=== PATIENT | male | born 1970 | race Caucasian/White ===

== ENCOUNTER → 2017-02-10 | Outpatient (CLI) | payer BC | LOC: FIMAGING 15:41 | PROVIDERS: ATTEND Orthopaedic Surgery | DX: M25.561 Pain in right knee (principal); M21.752 Unequal limb length (acquired), left femur ==

== ENCOUNTER → 2017-03-21 | Outpatient (CLI) | payer BC | LOC: FIMAGING 16:23 | PROVIDERS: ATTEND Orthopaedic Surgery | DX: Z01.818 Encounter for other preprocedural examination (principal); M17.11 Unilateral primary osteoarthritis, right knee ==

== ENCOUNTER 2017-03-31 07:24 | Observation (INO) | payer BC ==
[2017-03-21 17:27] LABS: % IMMATURE GRANULYOCYTES 0.3 % (0.0-1.1); ABSOLUTE IMMATURE GRANULOCYTES 0.02 10^3/uL (0.00-0.10); ADD DIFF? NO; ADD MORPH? NO; ADD SCAN? NO; ATYPICAL LYMPHOCYTE FLAG 0 (0-99); FRAGMENT RBC FLAG 0 (0-99); HEMATOCRIT 43.4 % (40.0-51.0); LEFT SHIFT FLG 0 (0-99); LIPEMIA HEMOLYSIS FLAG 90 (0-99); MEAN CELL HEMOGLOBIN 31.9 pg (27.9-34.1); MEAN CELL HEMOGLOBIN CONCENTR. 34.6 g/dL (32.4-36.7); MEAN CELL VOLUME 92.3 fL (81.5-99.8); PLATELET CLUMPS FLAG 0 (0-99); PLATELET COUNT 170 10^3/uL (150-400); RED CELL DISTRIBUTION WIDTH 12.6 % (11.5-15.2)
[~2017-03-31 07:24] MED LIST: ACETAMINOPHEN 325 MG TAB PO ONE; DEXAMETHASONE 4 MG/ML VIAL IVP ONE; FAMOTIDINE 20 MG TAB PO ONE; ROPIVACAINE 0.2% 80 MG, EPINEPHrine 0.2 MG, KETOROLAC TROMETHAMINE 30 MG in BAG 0 ML IU ONE; TRANEXAMIC ACID 3,000 MG in NS 50 ML IRR ONE; ceFAZolin 2 GM/DEXTROSE 100 ML IV ONE
[2017-03-31] MEDS ORDERED: LR 1,000 ML IV ONE (07:35)
[2017-03-31] MEDS ORDERED: LIDOCAINE 1% 2 ML INJ ID PRN (07:35)
--- NOTE | 2017-03-31 08:16 | PDHPUP ---
History & Physical Update H&P update statement: This history and physical update is based on an assessment of the patient which was completed after admission or registration (within 24 hours), but prior to the surgery/procedure. H&P update: H&P reviewed & patient examined, no change in patient's condition since H&P completed
[2017-03-31] MEDS ORDERED: MIDAZOLAM 2 MG/2 ML VIAL ONE (08:58)
[2017-03-31] MEDS ORDERED: MIDAZOLAM 2 MG/2 ML VIAL IVP ONE (09:00)
--- NOTE | 2017-03-31 09:02 | PDANEPAE ---
ANE Past Medical History - Cardiovascular History Hx Hypertension: No Hx Arrhythmias: No Hx Chest Pain: No Hx Coronary Artery / Peripheral Vascular Disease: No Hx CHF / Valvular Disease: No Hx Palpitations: No - Pulmonary History Hx COPD: No Hx Asthma/Reactive Airway Disease: No Hx Recent Upper Respiratory Infection: No Hx Oxygen in Use at Home: No Hx Sleep Apnea: No Sleep Apnea Screening Result - Last Documented: Negative - Neurologic History Hx Cerebrovascular Accident: No Hx Seizures: No Hx Dementia: No - Endocrine History Hx Diabetes: No Hypothyroid: No Hyperthyroid: No Obesity: no - Renal History Hx Renal Disorders: No - Liver History Hx Hepatic Disorders: No - Neurological & Psychiatric Hx Hx Neurological and Psychiatric Disorders: No - Cancer History Hx Cancer: No - Congenital Disorder History Hx Congenital Disorders: No - GI History Hx Gastrointestinal Disorders: No - Other Health History Other Health History: none,. bruises easily - Surgical History Prior Surgeries: lasik, left tendon repair, L5/S1, Rib fx x2, 2 punctured lungs ANE Review of Systems Review of Systems: - Exercise capacity METS (RN): 5 METS ANE Patient History - Allergies Allergies/Adverse Reactions: No Known Allergies Allergy (Verified 03/12/14 16:41) - Home Medications Home Medications: Meloxicam 15 mg PO DAILY PRN 03/12/14 [Last Taken 03/24/17] Benzonatate 200 mg PO DAILY PRN 03/02/17 [Last Taken Unknown] Glucosamine Sulfate [Glucosamine Sulfate 500 MG (*)] 500 mg PO DAILY 03/02/17 [ Last Taken 03/26/17] Herbals/Supplements -Info Only 1 ea PO DAILY 03/02/17 [Last Taken 03/26/17] Melatonin [Melatonin 3 MG (*)] 3 mg PO HS PRN 03/02/17 [Last Taken 03/26/17] Multivitamins [Multivitamin (*)] 1 each PO DAILY 03/02/17 [Last Taken 03/26/17] [place]-3 Fatty Acids [Fish Oil 1000 mg (*)] 1,000 mg PO DAILY 03/02/17 [Last Taken 03/26/17] Zolpidem Tartrate [Ambien 5MG (*)] 5 mg PO HS PRN 03/02/17 [Last Taken 03/31/17] valACYclovir [Valtrex (*)] 500 mg PO PRN PRN 03/02/17 [Last Taken 01/30/17] - NPO status NPO Since - Liquids (Date): 03/30/17 NPO Since - Liquids (Time): 22:30 NPO Since - Solids (Date): 03/30/17 NPO Since - Solids (Time): 22:30 - Smoking Hx Smoking Status: Never smoked - Family Anes Hx Family Hx Anesthesia Complications: none ANE Labs/Vital Signs - Labs Result Diagrams: 03/21/17 17:00 - Vital Signs Blood Pressure: 141/80 Heart Rate: 64 Respiratory Rate: 16 O2 Sat (%): 94 Height: 182.88 cm Weight: 86.183 kg ANE Physical Exam - Airway Neck exam: FROM Mallampati Score: Class 1 Mouth exam: normal dental/mouth exam - Pulmonary Pulmonary: no respiratory distress, no rales or rhonchi, clear to auscultation - Cardiovascular Cardiovascular: regular rate and rhythym, no murmur, rub, or gallop ANE Anesthesia Plan Anesthesia Plan: MAC, spinal Regional Anesthesia: adductor canal FNB (nerve block to be done inpacu)
[2017-03-31] MEDS ORDERED: PROPOFOL/EMULSION 500 MG/50 ML BOTTLE IV ONE ×2 (09:04→10:06)
[2017-03-31] MEDS ORDERED: fentaNYL 100 MCG/2 ML INJ ONE (09:04)
[2017-03-31] MEDS ORDERED: LIDOCAINE 2% 5 ML SDV ONE ×2 (09:06)
[2017-03-31] MEDS ORDERED: LR 500 ML IV PRN (09:27)
[2017-03-31] MEDS ORDERED: NALOXONE HCL 0.4 MG/ML INJ IVP PRN (09:27)
[2017-03-31] MEDS ORDERED: ONDANSETRON 4 MG/2 ML VIAL IVP PRN ×2 (09:27→09:42)
[2017-03-31] MEDS ORDERED: PROMETHAZINE HCL 25 MG/ML INJ IVP PRN (09:42)
[2017-03-31] MEDS ORDERED: LACTULOSE 20 GM/30 ML UDCUP PO PRN (09:42)
[2017-03-31] MEDS ORDERED: PROMETHAZINE HCL 25 MG SUPPR PR PRN (09:42)
[2017-03-31] MEDS ORDERED: BISACODYL 10 MG SUPP PR PRN (09:42)
[2017-03-31] MEDS ORDERED: CYCLOBENZAPRINE 10 MG TAB PO PRN (09:42)
[2017-03-31] MEDS ORDERED: TEMAZEPAM 15 MG CAP PO PRN (09:42)
[2017-03-31] MEDS ORDERED: MAGNESIUM HYDROXIDE 30 ML UDCUP PO PRN (09:42)
[2017-03-31] MEDS ORDERED: diphenhydrAMINE 25 MG CAP PO PRN (09:42)
[2017-03-31] MEDS ORDERED: POLYETHYLENE GLYCOL 3350 17 GM PKT PO PRN (09:42)
[2017-03-31] MEDS ORDERED: METOCLOPRAMIDE 10 MG/2 ML VIAL IVP PRN (09:42)
[2017-03-31] MEDS ORDERED: ONDANSETRON DISINTEGRATING 4 MG TAB PO PRN (09:42)
[2017-03-31] MEDS ORDERED: DIPHENOXYLATE/ATROPINE LOMOTIL 1 TAB PO PRN (09:42)
[2017-03-31] MEDS ORDERED: ZOLPIDEM TARTRATE 5 MG TAB PO PRN (09:44)
[2017-03-31] MEDS ORDERED: LR 1,000 ML IV SCH (10:00)
[2017-03-31] MEDS ORDERED: ROPIVACAINE HCL 150 MG/30 ML INJ ONE (10:08)
--- NOTE | 2017-03-31 10:37 | POSTOPPROG ---
Post Op Note Date of Operation: 03/31/17 Surgeon: Berenice Hawley Platform Beater: júnior hawley Anesthesiologist: dr. hawley Anesthesia: Spinal, Other (Specify) (adductor canal block) Pre-op Diagnosis: right knee OA Post-op Diagnosis: same Indication: right knee pain due to OA that failed conservative measures Procedure: R TKA Findings: right knee OA Inf/Abcess present in the surg proc area at time of surgery?: No EBL: 50-100
[2017-03-31] MEDS ORDERED: ONDANSETRON 4 MG/2 ML VIAL ONE (10:54)
--- NOTE | 2017-03-31 11:28 | POSTANESTH ---
Post Anesthetic Evaluation Cardiovascular Status: Normal, Stable Respiratory Status: Normal, Stable Level of Consciousness/Mental Status: Can Participate in Eval Pain Control: Adequate, Prn Tx Ordered Nausea/Vomiting Control: Adequate, Prn Tx Ordered Complications Possibly Related to Anesthesia: None Noted
[2017-03-31] MEDS: ACETAMINOPHEN 325 MG TAB PO SCH ×2 (14:00→20:56)
[2017-03-31] MEDS: oxyCODONE IR 5 MG TAB PO PRN (17:42)
[2017-03-31] MEDS: ceFAZolin 2 GM/DEXTROSE 100 ML IV SCH (17:43)
[2017-03-31] MEDS: ASPIRIN 325 MG TAB PO SCH (20:25)
[2017-03-31] MEDS: FAMOTIDINE 20 MG TAB PO SCH (20:26)
[2017-03-31] MEDS: SENNOSIDES/DOCUSATE SODIUM TAB PO SCH (20:27)
[2017-04-01] MEDS: ACETAMINOPHEN 325 MG TAB PO SCH ×3 (00:27→11:53)
[2017-04-01] MEDS: ceFAZolin 2 GM/DEXTROSE 100 ML IV SCH (00:30)
[2017-04-01 05:19] LABS: HEMATOCRIT 37.9 % (40.0-51.0); HEMOGLOBIN 12.9 g/dL (13.7-17.5)
[2017-04-01 08:06] VITALS: BP 121/83; PULSE 65; RESP 14; TEMP 98.1; O2SAT 94
[2017-04-01] MEDS: oxyCODONE IR 5 MG TAB PO PRN (08:17)
[2017-04-01] MEDS: FAMOTIDINE 20 MG TAB PO SCH (09:45)
[2017-04-01] MEDS: ASPIRIN 325 MG TAB PO SCH (09:46)
[2017-04-01] MEDS: SENNOSIDES/DOCUSATE SODIUM TAB PO SCH (09:46)
[2017-04-01] MEDS ORDERED: FLU VACC QS 2017-18 (3YR+)/PF 0.5 ML SYR (FLUARIX QUAD) IM ONE (10:31)
--- NOTE | 2017-04-01 11:13 | SOAPPROG ---
SOAP Progress Note Assessment/Plan: Assessment: Dank is POD 1 s/p R medial MPL 1) pain management: pain is well controlled on oral pain meds. adductor canal block is still working, but starting to wear off 2) Anemia: level expected initially postop. asymptomatic. continue to monitor 3) VTE ppx: aspirin 325 mg daily for 3 weeks 4) D/c planning: d/c to home today. 5) draining incision: improved today. replaced dressing. recommend restricting flexion to 90 degrees, f/u with Dr. Vang on Monday. Plan: 04/01/17 11:10 Subjective: Dank is doing well, denies SOB, chest pain and N/V. Objective: Vital Signs Temp Pulse Resp BP Pulse Ox 36.7 C 65 14 121/83 H 94 04/01/17 08:00 04/01/17 08:00 04/01/17 08:00 04/01/17 08:00 04/01/17 08:00 Laboratory Results 04/01/17 04:20 03/31/17 04/01/17 04/02/17 05:59 05:59 05:59 Intake Total 3765 Output Total 880 Balance 2885 RLE; incision dressing has dried blood on it, +pf/df, NVI ICD10 Worksheet Patient Problems: Problems Problem Status Onset Primary localized osteoarthritis of right knee Acute
--- NOTE | 2017-04-01 11:46 | ASMTCMCOM ---
CM Note CM Note Notes: Pt ready for DC today with no needs. Date Signed: 04/01/2017 11:45 AM Electronically Signed By:Meaghan Giles LCSW
--- NOTE | 2017-04-01 13:26 | GDS ---
[f rep st] DISCHARGE SUMMARY ADMISSION DIAGNOSIS: Right knee osteoarthritis. DISCHARGE DIAGNOSIS: Right knee osteoarthritis. PROCEDURE: Right partial knee arthroplasty, medial compartment, robot assisted. VTE PROPHYLAXIS: Aspirin recommended 3 weeks daily. BRIEF DESCRIPTION OF HOSPITAL STAY: Patient was admitted for an elective joint arthroplasty. The pa dahiana tolerated the procedure well and has passed physical therapy. The patient was given appropriat e antibiotic prophylaxis and venous thromboembolism prophylaxis. The patient's pain was well control led on oral pain medication, patient was holding down food, and had urinated. Decision was made to d ischarge the patient. The patient was given post-operative prescriptions pre-operatively. PLAN: Please follow up as scheduled on 04/20 at 4 p.m. /[id number]/MODL
--- NOTE | 2017-04-02 20:46 | GOP ---
[f rep st] OPERATIVE REPORT DATE OF OPERATION: 03/31/2017 SURGEON: Mariah Vang MD CAN CLOSING MACHINE TENDER: JACLYN Benitez. ANESTHESIA: Spinal. PREOPERATIVE DIAGNOSIS: Right knee osteoarthritis. POSTOPERATIVE DIAGNOSIS: Right knee osteoarthritis. PROCEDURE PERFORMED: Right medial compartment partial knee replacement with computer navigation and robotic assist. FINDINGS/PATHOLOGY: Severe medial compartment osteoarthritis. ESTIMATED BLOOD LOSS: 30 cc. INDICATIONS: This is a 46-year-old male with progressive pain of the right knee unresponsive to conservative care. Risks and benefits of surgical intervention were explained in detail. DESCRIPTION OF PROCEDURE: The patient was brought to the operating room and placed on the table in supine position. Spinal anesthesia was induced without difficulty. A pneumatic tourniquet was applied about the right proximal thigh and the leg was prepped and draped in sterile fashion. Attention was turned first to the distal aspect of the right femur. At 3 cm proximal to the lateral rise of the femur, 2 percutaneous half pins were placed for fixation of the femoral array. In a similar fashion, 2 pins were placed anterolateral on the tibia for fixation of the tibial array. External land marking and registration of the hip center was performed without difficulty. After exsanguination by elevation, the tourniquet was inflated to 250 mmHg. Incision was made from the tibial tuberosity to the superior pole of the patella. Dissection was carried out through the subcutaneous tissue to the deep fascia using Bovie electrocautery for hemostasis. Medial parapatellar arthrotomy was carried out to the superior pole of the patella. The medial collateral ligament was elevated and the infrapatellar fat pad was resected. Internal femoral and tibial registration was carried out without difficulty and the femoral and tibial checkpoints were placed and verified for accuracy. Attention was turned to the femur. The foot print for the size 6 femoral component was cut with the 6 mm bur using the [employer] robotic system and verified for accuracy against the CT based plan. The hole was cut for the femoral post. In a similar fashion, the 6 mm bur was used to cut the foot print for the size 6 tibial component using the Qnekt system and verified for accuracy against the CT based plan. Attention was turned to the posterior aspect of the knee and remnants of the medial meniscus were excised. The posterior capsule was injected with ropivacaine, epinephrine and Toradol. Trial reduction was carried out and there was excellent range of motion, alignment and stability using the size 6 femoral component and the size 6 tibial component, 6 x 9 mm polyethylene. All trials were then removed. The joint was thoroughly irrigated and carefully dried. One package of cement and 1 gram of vancomycin were mixed in the vacuum mixer and placed on the fixation surfaces of all components. The components were implanted and all excess cement was thoroughly removed. Implant placement was verified against the CT view plan and found to be excellent. The tourniquet was deflated and all bleeders were coagulated. The wound was thoroughly irrigated and closed using interrupted sutures of 2-0 Vicryl for the joint capsule. The subcu was closed with 3-0 Vicryl and the skin with 4-0 Monocryl. Dermabond and Steri-Strips were applied, followed by a compressive dressing. The patient was then moved from the operating room to the recovery room in good condition, having tolerated the procedure well. CASE CLASSIFICATION: Clean. /[id number]/MODL MTDD
== END 2017-04-01 12:34 | disposition home or self-care (01) ==
LOC: INTOOBSV 07:24 → F3N 07:24
PROVIDERS: ADMIT Orthopaedic Surgery; ATTEND Orthopaedic Surgery
PROC: 0SR Lower Joints, Replacement (ICD-10-PCS; principal; 2017-03-31 09:15)
DX: M17.11 Unilateral primary osteoarthritis, right knee (principal)
CPT/HCPCS: 27446; 73560; 90471; 97116; 97161; 97165; G0378; C1713; G0008; J0171; J0690; J1100; J1885; J2250; J2405; J2704; J2795; J3010

== ENCOUNTER → 2017-05-19 | Outpatient (CLI) | payer BC | LOC: FIMAGING 14:23 | PROVIDERS: ATTEND Orthopaedic Surgery | DX: Z01.818 Encounter for other preprocedural examination (principal); M17.12 Unilateral primary osteoarthritis, left knee; M16.12 Unilateral primary osteoarthritis, left hip; M19.072 Primary osteoarthritis, left ankle and foot ==

== ENCOUNTER 2017-06-02 07:12 | Observation (INO) | payer BC ==
[~2017-06-02 07:12] MED LIST changes: -ACETAMINOPHEN 325 MG TAB PO ONE; -DEXAMETHASONE 4 MG/ML VIAL IVP ONE; -FAMOTIDINE 20 MG TAB PO ONE; -ROPIVACAINE 0.2% 80 MG, EPINEPHrine 0.2 MG, KETOROLAC TROMETHAMINE 30 MG in BAG 0 ML IU ONE; +ROPIVACAINE 0.2% 80 MG, EPINEPHrine 0.2 MG, KETOROLAC TROMETHAMINE 30 MG in SYRINGE 0 ML IU ONE; -ceFAZolin 2 GM/DEXTROSE 100 ML IV ONE
[2017-06-02] MEDS ORDERED: DEXAMETHASONE 4 MG/ML VIAL IVP ONE (07:45)
[2017-06-02] MEDS ORDERED: ceFAZolin 2 GM/SWFI 2 GM/20 ML SYR IVP ONE (07:45)
[2017-06-02] MEDS ORDERED: FAMOTIDINE 20 MG TAB PO ONE (07:45)
[2017-06-02] MEDS ORDERED: ACETAMINOPHEN 325 MG TAB PO ONE (07:45)
[2017-06-02] MEDS ORDERED: LR 1,000 ML IV ONE (07:46)
[2017-06-02] MEDS ORDERED: TRANEXAMIC ACID 3,000 MG/50 ML BAG IRR ONE (07:56)
[2017-06-02] MEDS ORDERED: VANCOMYCIN 1 GM VIAL ONE (07:56)
[2017-06-02] MEDS ORDERED: MIDAZOLAM 2 MG/2 ML VIAL ONE (09:00)
[2017-06-02] MEDS ORDERED: BUPIVACAINE 0.5% 30 ML SDV ONE (09:04)
[2017-06-02] MEDS ORDERED: PROPOFOL/EMULSION 500 MG/50 ML BOTTLE IV ONE (09:05)
[2017-06-02] MEDS ORDERED: LIDOCAINE 2% 5 ML SDV ONE (09:07)
--- NOTE | 2017-06-02 09:37 | PDANEPAE ---
ANE History of Present Illness left knee OA ANE Past Medical History - Cardiovascular History Hx Hypertension: No Hx Arrhythmias: No Hx Chest Pain: No Hx Coronary Artery / Peripheral Vascular Disease: No Hx CHF / Valvular Disease: No Hx Palpitations: No - Pulmonary History Hx COPD: No Hx Asthma/Reactive Airway Disease: No Hx Recent Upper Respiratory Infection: No Hx Oxygen in Use at Home: No Hx Sleep Apnea: No Sleep Apnea Screening Result - Last Documented: Negative - Neurologic History Hx Cerebrovascular Accident: No Hx Seizures: No Hx Dementia: No - Endocrine History Hx Diabetes: No Obesity: no - Renal History Hx Renal Disorders: No - Liver History Hx Hepatic Disorders: No - Neurological & Psychiatric Hx Hx Neurological and Psychiatric Disorders: No - Cancer History Hx Cancer: No - Congenital Disorder History Hx Congenital Disorders: No - GI History Hx Gastrointestinal Disorders: No - Other Health History Other Health History: bruises easily - Chronic Pain History Chronic Pain: Yes (LT KNEE) - Surgical History Prior Surgeries: RT PARTIAL TOTAL KNEE 03/2017. lasik,. left tendon repair,. L5/S1, Rib fx x2, 2 punctured lungs ANE Review of Systems Review of Systems: - Exercise capacity METS (RN): 4 METS ANE Patient History - Allergies Allergies/Adverse Reactions: No Known Allergies Allergy (Verified 03/12/14 16:41) - Home Medications Home medications: home medication list seen and reviewed Home Medications: Melatonin [Melatonin 3 MG (*)] 3 mg PO HS PRN 03/02/17 [Last Taken 05/30/17] Zolpidem Tartrate [Ambien 5MG (*)] 10 mg PO HS PRN 03/02/17 [Last Taken 03/31/17 ] valACYclovir [Valtrex (*)] 500 mg PO PRN PRN 03/02/17 [Last Taken 01/30/17] - NPO status NPO Since - Liquids (Date): 06/02/17 NPO Since - Solids (Date): 06/01/17 - Smoking Hx Smoking Status: Never smoked - Family Anes Hx Family Hx Anesthesia Complications: none ANE Labs/Vital Signs - Vital Signs Blood Pressure: 138/89 Heart Rate: 64 Respiratory Rate: 16 O2 Sat (%): 96 Height: 182.88 cm Weight: 86.183 kg ANE Physical Exam - Airway Neck exam: FROM Mallampati Score: Class 1 Mouth exam: normal dental/mouth exam - Pulmonary Pulmonary: no respiratory distress - Cardiovascular Cardiovascular: regular rate and rhythym - ASA Status ASA Status: I ANE Anesthesia Plan Anesthesia Plan: spinal Regional Anesthesia: single shot NB, adductor canal FNB Urgent/Emergent Case: Anes eval completed preop but documented later for safe timely pt care
[2017-06-02] MEDS ORDERED: PROPOFOL 200 MG/20 ML VIAL ONE ×2 (09:52→10:19)
[2017-06-02] MEDS ORDERED: MAGNESIUM HYDROXIDE 30 ML UDCUP PO PRN (09:54)
[2017-06-02] MEDS ORDERED: ONDANSETRON DISINTEGRATING 4 MG TAB PO PRN (09:54)
[2017-06-02] MEDS ORDERED: ONDANSETRON 4 MG/2 ML VIAL IVP PRN (09:54)
[2017-06-02] MEDS ORDERED: BISACODYL 10 MG SUPP PR PRN (09:54)
[2017-06-02] MEDS ORDERED: diphenhydrAMINE 25 MG CAP PO PRN (09:54)
[2017-06-02] MEDS ORDERED: PROMETHAZINE HCL 25 MG SUPPR PR PRN (09:54)
[2017-06-02] MEDS ORDERED: DIPHENOXYLATE/ATROPINE LOMOTIL 1 TAB PO PRN (09:54)
[2017-06-02] MEDS ORDERED: TEMAZEPAM 15 MG CAP PO PRN (09:54)
[2017-06-02] MEDS ORDERED: POLYETHYLENE GLYCOL 3350 17 GM PKT PO PRN (09:54)
[2017-06-02] MEDS ORDERED: oxyCODONE IR 5 MG TAB PO PRN (09:54)
[2017-06-02] MEDS ORDERED: CYCLOBENZAPRINE 10 MG TAB PO PRN (09:54)
[2017-06-02] MEDS ORDERED: METOCLOPRAMIDE 10 MG/2 ML VIAL IVP PRN (09:54)
[2017-06-02] MEDS ORDERED: LACTULOSE 20 GM/30 ML UDCUP PO PRN (09:54)
[2017-06-02] MEDS ORDERED: PROMETHAZINE HCL 25 MG/ML INJ IVP PRN (09:54)
[2017-06-02] MEDS ORDERED: MIDAZOLAM 2 MG/2 ML VIAL IVP ONE (09:56)
[2017-06-02] MEDS ORDERED: LR 1,000 ML IV SCH (10:00)
--- NOTE | 2017-06-02 10:34 | POSTOPPROG ---
Post Op Note Date of Operation: 06/02/17 Surgeon: Berenice Hawley Hydrogen Operator: júnior hawley Anesthesiologist: dr. sheppard Anesthesia: Spinal, Other (Specify) (adductor canal block) Pre-op Diagnosis: left knee OA Post-op Diagnosis: same Indication: left knee pain due to OA that failed conservative measures Procedure: L med MPL Findings: severe medial knee OA Inf/Abcess present in the surg proc area at time of surgery?: No EBL: 50-100
[2017-06-02 13:30] VITALS: RESP 16; TEMP 97.3; O2SAT 97
[2017-06-02] MEDS: ACETAMINOPHEN 325 MG TAB PO SCH ×2 (13:52→17:50)
[2017-06-02 15:53] VITALS: BP 133/80; PULSE 62
[2017-06-02] MEDS ORDERED: ceFAZolin 2 GM/DEXTROSE 100 ML IV SCH (17:00)
[2017-06-02] MEDS ORDERED: SENNOSIDES/DOCUSATE SODIUM TAB PO SCH (21:00)
[2017-06-02] MEDS ORDERED: ASPIRIN 325 MG TAB PO SCH (21:00)
[2017-06-02] MEDS ORDERED: FAMOTIDINE 20 MG TAB PO SCH (21:00)
[2017-06-02] MEDS ORDERED: ASPIRIN 81 MG CHEWABLE TAB PO SCH (21:00)
--- NOTE | 2017-06-03 10:04 | ASDISCHSUM ---
Discharge Information Plan Status:Home with No Needs Medically Cleared to Leave: Discharge Date:06/02/2017 06:25 PM CM D/C Disposition:Home, Routine, Self-Care ADT D/C Disposition:Home, Routine, Self-Care Projected Discharge Date:06/02/2017 06:25 PM Transportation at D/C: Discharge Delay Reason: Follow-Up Date:06/02/2017 06:25 PM Discharge Slot: Final Diagnosis: Placement Information Patient Contact Information Contact Name:LYDIA Relationship: Address:[address] City:[place] Alternate Phone: [facility]/Zip Code:[place] [address] Email: Financial Information Financial Class:HMO and PPO Plans Primary Plan Desc: OUT OF STATE PPO Primary Plan Number:[id number] Secondary Plan Desc: Secondary Plan Number: Assessment Information Intervention Information
--- NOTE | 2017-06-04 10:57 | GDS ---
[f rep st] DISCHARGE SUMMARY ADMISSION DIAGNOSIS: Left knee osteoarthritis. DISCHARGE DIAGNOSIS: Left knee osteoarthritis. PROCEDURE: Left partial knee arthroplasty, medial compartment, robot assisted. VTE PROPHYLAXIS: Aspirin recommended 3 weeks, daily. BRIEF DESCRIPTION OF HOSPITAL STAY: Patient was admitted for an elective joint arthroplasty. The pa dahiana tolerated the procedure well and has passed physical therapy. The patient was given appropriat e antibiotic prophylaxis and venous thromboembolism prophylaxis. The patient's pain was well control led on oral pain medication, patient was holding down food, and had urinated. Decision was made to d ischarge the patient. The patient was given post-operative prescriptions pre-operatively. PLAN: To follow up as scheduled, June 13, at 9 a.m., with Dr. Vang at [facility] for Nan doran. /[id number]/MODL
--- NOTE | 2017-06-05 22:23 | GOP ---
[f rep st] OPERATIVE REPORT DATE OF OPERATION: 06/02/2017 SURGEON: Mariah Vang MD ASSISTANT STORE DIRECTOR: CYNDI Lezama. ANESTHESIA: Spinal. PREOPERATIVE DIAGNOSIS: Left knee osteoarthritis. POSTOPERATIVE DIAGNOSIS: Left knee osteoarthritis. PROCEDURE PERFORMED: left medial compartment partial knee replacement with computer navigation and robotic assist. FINDINGS: ESTIMATED BLOOD LOSS: 30 cc. INDICATIONS: This is a 46-year-old male with progressive pain of the left knee unresponsive to conservative care. Risks and benefits of surgical intervention were explained in detail. DESCRIPTION OF PROCEDURE: The patient was brought to the operating room and placed on the table in supine position. Spinal anesthesia was induced without difficulty. A pneumatic tourniquet was applied about the left proximal thigh and the leg was prepped and draped in sterile fashion. Attention was turned first to the distal aspect of the left femur. At 3 cm proximal to the lateral rise of the femur, 2 percutaneous half pins were placed for fixation of the femoral array. In a similar fashion, 2 pins were placed anterolateral on the tibia for fixation of the tibial array. External land marking and registration of the hip center was performed without difficulty. After exsanguination by elevation, the tourniquet was inflated to 250 mmHg. Incision was made from the tibial tuberosity to the superior pole of the patella. Dissection was carried out through the subcutaneous tissue to the deep fascia using Bovie electrocautery for hemostasis. Medial parapatellar arthrotomy was carried out to the superior pole of the patella. The medial collateral ligament was elevated and the infrapatellar fat pad was resected. Internal femoral and tibial registration was carried out without difficulty and the femoral and tibial checkpoints were placed and verified for accuracy. Attention was turned to the femur. The foot print for the size 6 femoral component was cut with the 6 mm bur using the [email or web address] robotic system and verified for accuracy against the CT based plan. The hole was cut for the femoral post. In a similar fashion, the 6 mm bur was used to cut the foot print for the size 6 tibial component using the REES46 system and verified for accuracy against the CT based plan. Attention was turned to the posterior aspect of the knee and remnants of the medial meniscus were excised. The posterior capsule was injected with ropivacaine, epinephrine and Toradol. Trial reduction was carried out and there was excellent range of motion, alignment and stability using the size 6 femoral component and the size 6 tibial component. All trials were then removed. The joint was thoroughly irrigated and carefully dried. One package of cement and 1 gram of vancomycin were mixed in the vacuum mixer and placed on the fixation surfaces of all components. The components were implanted and all excess cement was thoroughly removed. Implant placement was verified against the CT view plan and found to be excellent. The tourniquet was deflated and all bleeders were coagulated. The wound was thoroughly irrigated and closed using interrupted sutures of 2-0 Vicryl for the joint capsule. The subcu was closed with 3-0 Vicryl and the skin with 4-0 Monocryl. Dermabond and Steri-Strips were applied, followed by a compressive dressing. The patient was then moved from the operating room to the recovery room in good condition, having tolerated the procedure well. PATHOLOGY: Severe medial compartment osteoarthritis. CASE CLASSIFICATION: Clean. /[id number]/MODL MTDD
== END 2017-06-02 18:25 | disposition home or self-care (01) ==
LOC: INTOOBSV 07:12 → F3N 07:12
PROVIDERS: ADMIT Orthopaedic Surgery; ATTEND Orthopaedic Surgery
PROC: 0SRD0JZ Replacement of Left Knee Joint with Synthetic Substitute, Open Approach (ICD-10-PCS; principal; 2017-06-02 09:15)
PROC: 8E0Y0CZ Robotic Assisted Procedure of Lower Extremity, Open Approach (ICD-10-PCS; principal; 2017-06-02 09:15)
DX: M17.12 Unilateral primary osteoarthritis, left knee (principal)
CPT/HCPCS: 27446; 73560; 97161; G0378; C1713; J0171; J0690; J1100; J1885; J2250; J2704; J2795; J3370